=== PATIENT | female | born 1990 | race Two or more races ===

== ENCOUNTER 2023-09-10 09:56 | Emergency (ER) | payer OTHER ==
[2023-09-10 10:08] VITALS: BP 105/66; PULSE 92; RESP 18; TEMP 98.7; BMI 20.5
[2023-09-10] MEDS ORDERED: KETOROLAC TROMETHAMINE 30 MG/1 ML VIAL IM ONE (11:27)
[2023-09-10] MEDS ORDERED: KETOROLAC TROMETHAMINE 30 MG/1 ML VIAL ONE (11:33)
[2023-09-10 12:11] LABS: BASO % 0.8 % (0-2.0); EOS % 1.8 % (0-4.5); HEMATOCRIT 33.1 % (32.4-45.2); HEMOGLOBIN 10.3 GM/dL (10.7-15.3); MCH 22.9 pg (25.7-33.7); MCHC 31.1 g/dl (32.0-36.0); MEAN CELL VOLUME 73.7 fl (80-96); MEAN PLT VOLUME 9.4 fl (7.5-11.1); MONO % 5.5 % (3.8-10.2); NEUT % 59.9 % (42.8-82.8); PLATELET COUNT 260 10^3/uL (134-434); RDW 17.3 % (11.6-15.6); WHITE BLOOD COUNT 3.9 K/mm3 (4.0-10.0)
[2023-09-10 12:36] LABS: POTASSIUM 4.9 mmol/L (3.5-5.1)
[2023-09-10 12:37] LABS: CALCIUM 9.2 mg/dL (8.5-10.1)
[2023-09-10 12:38] LABS: ALBUMIN 3.8 g/dl (3.4-5.0); BLOOD UREA NITROGEN 6.8 mg/dL (7-18)
[2023-09-10 12:41] LABS: CREATININE 0.6 mg/dL (0.55-1.3)
[2023-09-10 12:43] LABS: BILIRUBIN,TOTAL 0.5 mg/dL (0.2-1); TOT PROT 7.4 g/dl (6.4-8.2)
== END 2023-09-10 14:34 | disposition home or self-care (01) ==
LOC: JERFT 09:56
PROC: 3E0233Z Introduction of Anti-inflammatory into Muscle, Percutaneous Approach (ICD-10-PCS; principal; 2023-09-10)
DX: M54.6 Pain in thoracic spine (principal); R20.0 Anesthesia of skin
CPT/HCPCS: 36415; 72128-TC; 80053; 85025; 86235; 99284-25